=== PATIENT | female | born 1955 | race Caucasian/White ===

== ENCOUNTER 2025-03-27 06:45 | Day surgery (SDC) | payer MEDICARE ==
[2025-03-26 10:22] VITALS: BMI 38.0
[~2025-03-27 06:45] MED LIST: EPINEPHrine 0.3 MG in Ophthalmic Irrigation Solution 500 ML IRR SCH
[2025-03-27] MEDS ORDERED: Cyclopentolate 1% Opth Drop 2 ML BOT ONE (06:57)
[2025-03-27] MEDS ORDERED: PROPOFOL 20 ML ONE (07:50)
[2025-03-27] MEDS ORDERED: Lidocaine 1% PF 5 ML VIAL ONE (07:50)
[2025-03-27] MEDS ORDERED: CEFAZOLIN 1 GM VIAL ONE (08:53)
[2025-03-27] MEDS ORDERED: Maxitrol 0.1% Opth Oint 3.5 GM TUBE ONE (08:53)
[2025-03-27] MEDS ORDERED: Lidocaine 4% PF 5 ML AMP ONE (08:53)
== END 2025-03-27 09:50 | disposition home or self-care (01) ==
LOC: SDC 06:45
PROVIDERS: ATTEND Ophthalmology Retina Specialist
PROC: 08T53ZZ Resection of Left Vitreous, Percutaneous Approach (ICD-10-PCS; principal; 2025-03-27)
DX: H43.392 Other vitreous opacities, left eye (principal); Z98.49 Cataract extraction status, unspecified eye; Z96.1 Presence of intraocular lens; Z88.1 Allergy status to other antibiotic agents
CPT/HCPCS: 67036; J0166; J0690; J2250; J2704; J3010; J3301; J3490

== ENCOUNTER 2025-04-24 06:23 | Day surgery (SDC) | payer MEDICARE ==
[2025-04-23 09:40] VITALS: BMI 37.8
[2025-04-24] MEDS ORDERED: Cyclopentolate 1% Opth Drop 2 ML BOT ONE (06:25)
[2025-04-24] MEDS ORDERED: Lidocaine 1% PF 5 ML VIAL ONE ×2 (06:59→07:48)
[2025-04-24] MEDS ORDERED: PROPOFOL 20 ML ONE (06:59)
[2025-04-24] MEDS ORDERED: CEFAZOLIN 1 GM VIAL ONE (07:48)
[2025-04-24] MEDS ORDERED: Maxitrol 0.1% Opth Oint 3.5 GM TUBE ONE (07:48)
[2025-04-24] MEDS ORDERED: Lidocaine 4% PF 5 ML AMP ONE (07:48)
== END 2025-04-24 08:40 | disposition home or self-care (01) ==
LOC: SDC 06:23
PROVIDERS: ATTEND Ophthalmology Retina Specialist
PROC: 08B43ZZ Excision of Right Vitreous, Percutaneous Approach (ICD-10-PCS; principal; 2025-04-24)
DX: H43.391 Other vitreous opacities, right eye (principal)
CPT/HCPCS: 67036; J0166; J0690; J2250; J2704; J3301; J3490